=== PATIENT | male | born 1970 | race Caucasian/White ===

== ENCOUNTER 2019-10-31 02:38 | Emergency (ER) | payer BC, SELFPAY ==
--- NOTE | ~2019-10-31 | XR_ITS ---
EXAMINATION: XR wrist RT min 3V INDICATION: Right wrist pain, initial encounter TECHNIQUE: Four views of the right wrist are obtained. COMPARISON: None available FINDINGS: There is an acute, traumatic, closed, triquetral fracture seen on lateral view. Soft tissue swelling surrounds the fracture. No additional acute osseous findings are evident. IMPRESSION: 1. Acute triquetral fracture. Reviewed, dictated and finalized at location A. NIC DISEASE MANAGER
[2019-10-31 02:40] VITALS: BP 218/103; PULSE 90; RESP 16; TEMP 36.3; O2SAT 100
--- NOTE | 2019-10-31 04:42 | ED.UPPEXIN ---
HPI - Extremity Injury (Upper) General Chief Complaint: Extremity Injury, Upper Stated Complaint: right arm injury Time Seen by Provider: 10/31/19 03:26 History of Present Illness HPI narrative: Patient is a 49-year-old male who presents the ER with a right wrist injury. 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 He extended the wrist backwards. Sudden onset pain. Pain worsens with flexion and extension at the wrist. Neurovascular intact distal to the injury. Did not strike head or lose consciousness. Related Data Allergies Allergy/AdvReac Type Severity Reaction Status Date / Time No Known Allergies Allergy Mild Verified 10/31/19 02:55 Review of Systems Review of Systems: All systems reviewed & are unremarkable except as noted in HPI and below Musculoskeletal: Musculoskeletal: Reports arthralgias and Reports joint swelling Neurologic: Denies dizziness, Denies numbness and Denies weakness PMFSH Past Medical History Medical History (Updated 10/31/19 @ 05:14 by Zeb Stephen MD) Gout Hypertension Sleep apnea Surgical History Surgical History (Updated 10/31/19 @ 04:46 by Zeb Stephen MD) H/O knee surgery Social History Social History Smoking status: Never smoker Second hand tobacco smoke exposure: Yes Alcohol intake: current Exam Narrative: Exam Narrative: GENERAL: Well-appearing, well-nourished, and in no acute distress. HEAD: Normocephalic, atraumatic. ENT: Mucous membranes moist. EXTREMITIES: Focused exam of the right upper extremity is positive for swelling and slight bruising over the dorsal aspect of the right wrist with tenderness over the proximal aspect of the hand and wrist joint as opposed to the distal radius and ulna. Pain with making a fist and extending fingers. Brisk capillary refill. Normal ulnar/radial pulses. SKIN: Warm, dry, no rash. NEURO: No focal deficits. Alert and oriented x3. PSYCH: Normal mood and affect. Course Course Emergency Course: Disucussed with Dr. Faye, recommends tertiary care hand surgery as he and Dr. Gill do not work on Lunate fractures. Discussed with Dr. Bal at [facility], recommends f/u with Dr. Welch or Dr. Quinones at [facility]. Clinic number provided. Pt splinted and give copy of images. Vital Signs Vital signs: Vital Signs Temperature 97.3 F L 10/31/19 02:40 Pulse Rate 90 10/31/19 02:40 Respiratory Rate 16 10/31/19 02:40 Blood Pressure 218/103 H 10/31/19 02:40 Pulse Oximetry 100 10/31/19 02:40 Temperature 97.3 F L 10/31/19 02:40 Pulse Rate 90 10/31/19 04:58 Respiratory Rate 12 10/31/19 04:58 Blood Pressure 197/114 H 10/31/19 04:58 Pulse Oximetry 98 10/31/19 04:58 Procedures Orthopedic Splinting/Casting Injury #1: Splinting/Casting Date: 10/31/19 Splinting/Casting Time: 04:48 Side: right Upper Extremity Injury Location: wrist Upper Extremity Immobilizer: wrist splint Splint: customized in ED OCL: other (volar and dorsal splint) Pre-Procedure Neuro Vascular Exam: normal Post-Procedure Neuro Vascular Exam: normal MDM - Extremity Injury (Upper) Imaging Data My impression: Right Wrist: Lunate Fracture Discharge Plan Discharge Clinical Impression: Fracture of lunate bone of right wrist Qualifiers: Encounter type: initial encounter Fracture type: closed Fracture alignment: nondisplaced Qualified Code(s): S62.124A - Nondisplaced fracture of lunate [semilunar], right wrist, initial encounter for closed fracture Patient Disposition: Home, Self-Care Condition: Stable Instructions: Wrist Fracture in Adults (ED) Additional Instructions: You have a fracture of the lunate bone in your right wrist. Is recommended that you follow-up with the hand surgeons at [facility]. You should see either Dr. Welch or Dr. Quinones. Do not re
[2019-10-31 04:58] VITALS: BP 197/114; PULSE 90; RESP 12; O2SAT 98
--- NOTE | 2020-03-26 10:25 | PC.NURSE ---
LATE ENTRY This note is being entered to document information to the patient's record. The following information was omitted on [10/31/19], by [Dr. Stephen].Verbal order for Right arm short volar splint.
== END 2019-10-31 05:35 | disposition home or self-care (01) ==
PROVIDERS: Emergency Provider Emergency Medicine; PCP Family Medicine
DX: S62.111A Displaced fracture of triquetrum [cuneiform] bone, right wrist, initial encounter for closed fracture (principal); I10 Essential (primary) hypertension; G47.30 Sleep apnea, unspecified; M10.9 Gout, unspecified; Y93.81 Activity, refereeing a sports activity; W03.XXXA Other fall on same level due to collision with another person, initial encounter
CPT/HCPCS: 29125; 73110; 99284

== ENCOUNTER 2020-02-17 00:33 | Outpatient (CLI) | payer BC, SELFPAY | END 2020-02-17 00:34 | disposition home or self-care (01) | LOC: ANHCOVIDDT 00:33 | PROVIDERS: PCP Family Medicine; Visit Provider Internal Medicine Gastroenterology | DX: Z01.818 Encounter for other preprocedural examination (principal); Z11.59 Encounter for screening for other viral diseases | CPT/HCPCS: 87635; C9803; U0003 ==

== ENCOUNTER 2020-02-20 00:59 | Day surgery (SDC) | payer BC, SELFPAY ==
[2020-02-14 14:24] VITALS: BMI 41.7
[2020-02-20 07:21] VITALS: BP 157/113; PULSE 113; RESP 16; TEMP 36.7; O2SAT 98
[2020-02-20] MEDS: LACTATED RINGERS 1,000 ML 150 ML IV CONT (07:35)
--- NOTE | 2020-02-20 07:52 | WPDANESEPPF ---
Anes - Initial Pre Proc Eval Procedure: Operation Date: 02/20/20 08:30 Proposed Procedures p Screening Colonoscopy - Andrae Brown MD Date/Time: 02/20/20 07:52 Surgeon: Andrae Brown MD Pre Op Diagnosis: neoplasm screening Patient Data Age: 49 Gender: M Height: 5 ft 10 in Weight: 148 kg Last Vital Signs Temp 36.7 C 02/20/20 07:21 Pulse 113 H 02/20/20 07:21 Resp 16 02/20/20 07:21 BP 157/113 H 02/20/20 07:21 Pulse Ox 98 02/20/20 07:21 Allergies Allergy/AdvReac Type Severity Reaction Status Date / Time No Known Allergies Allergy Mild Verified 02/20/20 07:08 Home Medications Medication Instructions Recorded Confirmed Type meloxicam 7.5 mg tablet 7.5 mg PO DAILY #30 tablet 12/15/19 02/20/20 Rx allopurinol 300 mg tablet 300 mg PO DAILY #30 tablet 01/30/20 02/14/20 Rx lisinopril 5 mg tablet 5 mg PO DAILY #30 tablet 01/30/20 02/14/20 Rx Patient hx anesthesia problems: none Family hx anesthesia problems: none PMFSH Past Medical History Medical History Gout Hypertension Sleep apnea Surgical History Surgical History H/O knee surgery Social History Social History Smoking status: Never smoker Second hand tobacco smoke exposure: Yes Alcohol intake: current Anes - Eval Final PreProcedure Day of Procedure 02/20/20 07:52 Patient weight: morbidly obese Heart: regular rate and rhythm Lungs: clear to auscultation Airway: Mallampati scale class II Neurological: alert and oriented Last oral intake: >/= 8 hours ASA classification: III Emergent: no Anesthetic plan: proceed Anesthesia type and monitoring: general GIVS and standard monitoring Informed Consent: The patient's anesthetic plan and its attendant risks and benefits were discussed with the patient/family/POA. Questions were solicited and answers provided to the satisfaction of the patient/family/POA.
--- NOTE | 2020-02-20 08:45 | PM.HPGS ---
History of Present Illness History of Present Illness Consent: Risks, benefits, and alternatives have been discussed and questions answered. Patient agrees to proceed with procedure. Chief complaint: neoplasm screening Narrative: Kilo Crowe is a 49 year old male here for his first screening colonoscopy Review of Systems Constitutional: Constitutional: Denies headache(s) and Denies weakness Eyes: Eyes: Denies blurry vision ENT: Reports Normal hearing present, Denies headache(s) and Denies neck pain Cardiovascular: Cardiovascular: Denies chest pain and Denies dyspnea Respiratory: Respiratory: Denies dyspnea Gastrointestinal: Gastrointestinal: Reports no additional gastrointestinal complaints Genitourinary: Genitourinary: Denies dysuria Musculoskeletal: Musculoskeletal: Denies neck pain Integumentary/Breasts: Skin/Breast: Denies dry skin Neurologic: Reports Normal hearing present, Denies headache(s) and Denies weakness Psychiatric: Psychiatric: Denies anxiety Endocrine: Endocrine: Denies change in body appearance Hematologic/Lymphatic: Hematologic/Lymphatic: Denies easy bleeding Allergic/Immunologic: Allergic/Immunologic: Denies urticaria PMFSH Past Medical History Medical History Gout Hypertension Sleep apnea Surgical History Surgical History H/O knee surgery Social History Social History Smoking status: Never smoker Second hand tobacco smoke exposure: Yes Alcohol intake: current Meds Home Medications and Allergies Home Medications Medication Instructions Recorded Confirmed Type meloxicam 7.5 mg tablet 7.5 mg PO DAILY #30 tablet 12/15/19 02/20/20 Rx allopurinol 300 mg tablet 300 mg PO DAILY #30 tablet 01/30/20 02/14/20 Rx lisinopril 5 mg tablet 5 mg PO DAILY #30 tablet 01/30/20 02/14/20 Rx Allergies Allergy/AdvReac Type Severity Reaction Status Date / Time No Known Allergies Allergy Mild Verified 02/20/20 07:08 Vital Signs Vital Signs - 24 hr 02/20/20 07:21 Temperature 98.0 F Pulse Rate 113 H Respiratory Rate 16 Blood Pressure 157/113 H Pulse Oximetry 98 Exam Const: General: comfortable and no acute distress HENMT: General nose exam: Normal nares present Eyes: General: appearance normal, both eyes and all related structures Neck: Neck: no JVD Resp: Auscultation: clear to auscultation bilaterally Cardio: Rate: regular rate Rhythm: regular rhythm GI: Inspection: non-distended GI Palp: Yes Soft to palpation Skin: General skin exam: normal color Neuro: General: gait normal Speech: normal speech Extrem: General: normal to inspection Psych: Mental Status: mental status grossly normal Assessment and Plan Assessment and plan (1) Colon cancer screening: Code(s): Z12.11 - Encounter for screening for malignant neoplasm of colon Status: Acute Assessment and Plan: will proceed with colonoscopy (2) Hypertension: Code(s): I10 - Essential (primary) hypertension Status: Acute
[2020-02-20 09:09] VITALS: BP 108/58; PULSE 79; RESP 18; O2SAT 99
[2020-02-20 09:19] VITALS: BP 113/57; PULSE 76; RESP 22; O2SAT 98
[2020-02-20 09:29] VITALS: BP 131/71; PULSE 83; RESP 20; O2SAT 99
== END 2020-02-20 09:48 | disposition home or self-care (01) ==
PROVIDERS: PCP Family Medicine; Visit Provider Internal Medicine Gastroenterology
PROC: 0DJD8ZZ Inspection of Lower Intestinal Tract, Via Natural or Artificial Opening Endoscopic (ICD-10-PCS; CPT 45378; principal; 2020-02-20 08:30)
DX: Z12.11 Encounter for screening for malignant neoplasm of colon (principal); K64.8 Other hemorrhoids; I10 Essential (primary) hypertension; G47.30 Sleep apnea, unspecified; M10.9 Gout, unspecified; E66.01 Morbid (severe) obesity due to excess calories; Z68.42 Body mass index [BMI] 45.0-49.9, adult
CPT/HCPCS: 45378; J7120

== ENCOUNTER 2022-01-16 08:23 | Emergency (ER) | payer BC, SELFPAY ==
[2022-01-16] VITALS (9 sets, daily range): BP systolic 147–219; BP diastolic 85–114; PULSE 87–99; RESP 20; TEMP 36.6; O2SAT 97–99
--- NOTE | ~2022-01-16 | CT_ITS ---
"EXAMINATION: CTA brain carotid DATE: 01/16/2022 10:06 INDICATION: Right hemiparesis. TECHNIQUE: Computed tomographic angiography (CTA) of the head was performed with 100 mL Omnipaque-350 intravenous contrast. CTA of the neck was performed with intravenous contrast. Automated exposure co ntrol and iterative reconstruction technique were employed. The dose-length product was 1299.28 mGy-c m. Maximum intensity projection and volume rendered 3D-reconstructions were created by the [id number] on a separate workstation. COMPARISON: Head CT 01/16/2022 FINDINGS: HEAD CTA: There is no intracranial hemorrhage, acute infarction, or abnormal intracranial mass lesion . The ventricles are normal in size. Left vertebral artery is dominant. There is no significant steno sis of basilar artery or the posterior cerebral arteries. There is no significant stenosis of the int racranial internal carotid arteries or anterior or middle cerebral arteries. Anterior communicating a rtery is normal. Posterior communicating arteries are not identified. There is no aneurysm. NECK CTA: There is a multinodular goiter extending into the superior mediastinum. There are no pathol ogically enlarged lymph nodes. There is no significant stenosis of the vertebral arteries. There is p laque in the proximal internal carotid arteries. There is 0% stenosis of the proximal right internal carotid artery relative to normal distal artery lumen diameter (NASCET criteria). There is 0% stenosi s of the proximal left internal carotid artery relative to normal distal artery lumen diameter. There is mild cervical spondylosis. IMPRESSION: 1. Normal brain. No aneurysm or significant intracranial internal stenosis. 2. 0% stenosis of the proximal internal carotid arteries relative to normal distal artery lumen diame ters (NASCET criteria). Reviewed, dictated and finalized at location A. IMPRESSION: 1. Normal brain. No aneurysm or significant intracranial internal stenosis. 2. 0% stenosis of the proximal internal carotid arteries relative to normal dis nhung artery lumen diameters (NASCET criteria)."
--- NOTE | ~2022-01-16 | CT_ITS ---
EXAMINATION: CT brain wo con EXAM DATE: 01/16/2022 09:02 INDICATION: Right sided weakness . Colon cancer. TECHNIQUE: Spiral CT of the head was performed without contrast. Axial, coronal and sagittal images were reviewed. The dose-length product (DLP) for this examination was 605.33 mGy-cm. The exposure w as tailored according to patient size, and iterative reconstruction (ASIR) was used as additional dos e reduction technique. There is no prior study for comparison. FINDINGS: There is no acute intraparenchymal hemorrhage. No evidence of intraparenchymal brain mass lesion. No evidence of acute infarction. There is no mass effect or midline shift. The ventricles are normal in size. There are no extra-axial collections. There are no acute calvarial fractures. Kimberly mooney has had left-sided ocular lens surgery. Soft tissue is unremarkable. The visualized sinuses and mastoid air cells are well aerated. IMPRESSION: 1. No acute intracranial findings. Reviewed, dictated and finalized at location D.
--- NOTE | 2022-01-16 08:32 | ED.NEUROSD ---
HPI - Neuro Symptoms/Deficit General Chief Complaint: Weakness Stated Complaint: ambulance Time Seen by Provider: 01/16/22 08:32 Source: patient Mode of arrival: ambulatory Limitations: no limitations History of Present Illness HPI Narrative: Patient states that he got up at 5:30 a.m. this morning was fine when he went in to take a shower approximately 7:30 a.m., when he got out of the shower and his leg and arm on right side turned to Jell-O . He sat down and his symptoms quickly resolved. He started to get ready and got dressed and then he had a 2nd episode. He does state that his thought his speech was slurred. He was not have any difficulty finding his words. She called the ambulance, in the ambulance EMS reports he had a 3rd episode his right side was completely flaccid again having some garbled speech but it quickly resolved prior to arrival. Since arrival patient has been completely without symptoms. He denies any history of this in the past. He did say that he quit taking his blood pressure medicine for no apparent reason. Onset (ago): hour(s) (1) Timing confirmed by: spouse Location: speech, right face, right arm and right leg History of same: No Severity: severe Quality: weak Relieving factors: time Exacerbating factors: none Context: sudden onset On Anticoagulants: No Associated symptoms: denies other symptoms Treatments Prior to Arrival: none Related Data Allergies Allergy/AdvReac Type Severity Reaction Status Date / Time No Known Allergies Allergy Mild Verified 01/16/22 13:03 Review of Systems Review of Systems: All systems reviewed & are unremarkable except as noted in HPI and below Constitutional: Constitutional: Denies chills and Denies fever(s) Cardiovascular: Cardiovascular: Denies chest pain Respiratory: Respiratory: Denies cough and Denies dyspnea Gastrointestinal: Gastrointestinal: Denies diarrhea, Denies nausea and Denies vomiting Neurologic: Denies vertigo, Denies dizziness and Denies syncope [facility] Past Medical History Medical History Colon cancer screening Gout Hypertension Morbid obesity Normal colonoscopy (~02/2020) repeat 10 years Sleep apnea Surgical History Surgical History H/O knee surgery Social History Social History Smoking status: Never smoker Second hand tobacco smoke exposure: Yes Alcohol intake: never Alcohol use details: RARE Substance use: never Substance use type: does not use Gender identity (if verbalized by the patient): Male Spiritual care concerns: No Exam Const: General: healthy appearing and no acute distress Nutritional Appearance: well nourished and obese morbidly obese Orientation/consciousness: patient oriented x3 Limitations: altered mental status HENMT: Head: normal to inspection Ears: external ears normal General nose exam: Normal external nose present Face and sinus: normal facial exam Mouth: Yes moist mucous membranes Eyes: Conjunctivae: conjunctivae normal Pupils: Equal, round and reactive pupils present EOM: EOMs intact bilaterally Neck: Neck: normal visual inspection Resp: Effort & Inspection: normal respiratory effort Auscultation: clear to auscultation bilaterally Cardio: Rate: regular rate Rhythm: regular rhythm Bruits: no carotid bruits GI: GI Palp: Yes Soft to palpation and No Tenderness to palpation present (GI) Auscultation: normal bowel sounds Back/Spine/Pelvis: Cervical Spine: cervical ROM normal Thoracic/Lumbar Spine: thoraco-lumbar ROM normal Skin: General skin exam: normal color Rashes: no rashes Neuro: General: patient oriented x3 Cranial nerves: Yes CN's II-XII intact bilaterally, Yes Equal, round and reactive pupils present, Yes Bilaterally intact EOM present, Yes Nystagmus not present, Yes Normal facial strength present, Yes facial
--- NOTE | 2022-01-16 08:33 | ECG_ITS ---
Measurements Intervals [place] Rate: 88 P: 49 PA: 175 QRS: -29 QRSD: 113 T: 47 QT: 354 QTc: 428 Interpretive Statements SINUS RHYTHM WITH OCCASIONAL VENTRICULAR PREMATURE COMPLEXES LEFT AXIS DEVIATION [QRS AXIS < -20] MODERATE INTRAVENTRICULAR CONDUCTION DELAY [110+ ms QRS DURATION] ABNORMAL ECG NO PREVIOUS ECG AVAILABLE FOR COMPARISON Electronically Signed On 01-16-2022 15:34:38 CDT by Jose Ramon Brown M.D.
[2022-01-16] MEDS: hydrALAZINE HCL 20 MG/ML VIAL 10 MG IV PUSH (08:41)
[2022-01-16 08:50] LABS: Basophils Absolute Auto 0.06 K/mm3 (0.00-0.10); Basophils Percent Auto 0.6 % (0.0-1.0); Eosinophils Absolute Auto 0.35 K/mm3 (0.02-0.50); Eosinophils Percent Auto 3.7 % (1.0-6.0); Hemoglobin 15.2 g/dL (14.0-18.0); Immature Granulocyte Absolute 0.07 K/mm3 (0.00-0.00); Immature Granulocyte Percent A 0.7 % (0.0-0.0); Lymphocytes Absolute Auto 2.05 K/mm3 (1.10-4.50); Lymphocytes Percent Auto 21.6 % (18.0-42.0); Mean Corpuscular Volume 81.9 fL (78.0-102.0); Mean Platelet Volume 9.6 fl (8.7-11.0); Monocytes Absolute Auto 0.65 K/mm3 (0.10-0.90); Monocytes Percent Auto 6.9 % (2.0-11.0); Neutrophils Absolute Auto 6.3 K/mm3 (1.7-7.2); Neutrophils Percent Auto 66.5 % (50.0-70.0); Platelet Count Result 275 K/mm3 (150-420); Red Blood Count 5.62 M/mm3 (4.70-6.10); Red Cell Distribution Width 13.5 % (11.6-14.4); White Blood Count 9.5 K/mm3 (4.8-10.8)
[2022-01-16 09:02] LABS: Prothrombin Time 10.5 Seconds (9.50-12.10)
[2022-01-16 09:05] LABS: Alanine Aminotransferase 32 U/L (16-63); Albumin Level 3.6 g/dL (3.4-5.0); Alkaline Phosphatase 129 U/L (46-116); Anion Gap 10 mmol/L (8-16); Aspartate Amino Transferase 15 U/L (15-37); Bilirubin,Total 0.5 mg/dL (0.00-1.00); Blood Urea Nitrogen 12 mg/dL (7-18); Calcium 8.9 mg/dL (8.5-10.1); Carbon Dioxide 26 mmol/L (21-32); Chloride 102 mmol/L (98-108); Estimated Glomerular Filt Rate > 60; Glucose 127 mg/dL (70-99); Osmolality Calculated 287 mOsm/kg (285-295); Potassium 3.9 mmol/L (3.5-5.1); Sodium 138 mmol/L (136-145); Total Protein 7.9 g/dL (6.4-8.2)
[2022-01-16] MEDS: cloNIDine HCL 0.1 MG TABLET 0.2 MG PO (09:20)
[2022-01-16] MEDS: ASPIRIN 81 MG CHEWABLE TABLET 324 MG PO (09:22)
[2022-01-16 10:07] LABS: Magnesium 1.9 mg/dL (1.8-2.4); Thyroid Stimulating Hormone 1.85 uIU/mL (0.36-3.74)
--- NOTE | 2022-01-16 11:21 | PC.NURSE ---
PT LOADED TO EMS COT, REMAINS ALERT AND ORIENTED, NO DEFICITS NOTED.
== END 2022-01-16 11:20 | disposition short-term general hospital (02) ==
PROVIDERS: Emergency Provider Emergency Medicine; PCP Family Medicine
DX: G45.9 Transient cerebral ischemic attack, unspecified (principal); I16.0 Hypertensive urgency
CPT/HCPCS: 36415; 70450; 70496; 70498; 80053; 83735; 84443; 85025; 85610; 93005; 96374; 99285; A9270; J0360; Q9967

== ENCOUNTER 2022-01-16 13:29 | Inpatient (IN) | payer BC, SELFPAY ==
[2022-01-16] VITALS (10 sets, daily range): BP systolic 135–179; BP diastolic 73–107; PULSE 81–97; RESP 18–20; TEMP 36–37.1; O2SAT 98–99; BMI 43.2
--- NOTE | 2022-01-16 | ECHO_ITS ---
Patient Info Name: Kilo Crowe Age: 51 years : 1970 Gender: Male Ht: 71 in Wt: 310 lbs BSA: 2.72 m2 HR: 78 bpm BP: 145 / 73 mmHg Technical Quality: Fair Exam Date: 01/16/2022 3:49 PM Exam Location: [facility] Pulmonary Exam Room: 259 Patient Status: Inpatient Admit Date: 01/16/2022 Staff Ordering Physician: Yifan Cuevas [employer] Fitter: Teena Escudero RDCS Attending Provider: Maddy Kinney MD Referring Physician: Mason JUAN; Exam Type: CA echo doppler w bubble study Study Info Indications - TIA Complete two-dimensional, color flow and Doppler transthoracic echocardiogram is performed with agitated saline. Contrast/Agitated Saline Contrast/Ag. Saline: Agitated Saline Amount: 20.00 ml Existing IV Access: Yes Summary 1. Left ventricular chamber dimension is normal. 2. Left ventricular systolic function is normal, estimated at 60-65%. 3. There is mildly increased left ventricular wall thickness. 4. The left ventricular diastolic function is grade II diastolic dysfunction. 5. E/e' 10 is mildly elevated. 6. No pulmonary hypertension, estimated pulmonary arterial systolic pressure is 28 mmHg. Left Ventricle E/e' 10 is mildly elevated. Left ventricular chamber dimension is normal. Left ventricular systolic function is normal, estimated at 60-65%. There is mildly increased left ventricular wall thickness. The left ventricular diastolic function is grade II diastolic dysfunction. Right Ventricle Right ventricular chamber dimension is normal. Right ventricular systolic function is normal. Left Atria Left atrial chamber dimension is normal. Right Atria Right atrial chamber dimension is normal. Atrial Septum Agitated saline injection with and without valsalva maneuver opacified right side cardiac chambers without obvious shunt to left cardiac chambers. Intact interatrial septum visualized by 2D and agitated saline imaging. Aortic Valve The aortic valve is probable trileaflet. There is no aortic valve stenosis. There is no aortic valve regurgitation. Pulmonic Valve There is no pulmonic regurgitation. Mitral Valve There is no mitral valve stenosis. There is no mitral valve regurgitation. Tricuspid Valve There is no tricuspid valve regurgitation. No pulmonary hypertension, estimated pulmonary arterial systolic pressure is 28 mmHg. Pericardium/Pleural There is no pericardial effusion. Inferior Vena Cava Normal inferior vena cava with >50% collapse upon inspiration consistent with normal right atrial pressure, 5 mmHg. Aorta The aortic root size at the sinus of Valsalva is normal. Left Ventricular Outflow Tract Name Value Normal LVOT 2D LVOT Diameter 2.1 cm LVOT Doppler LVOT Peak Gradient 6 mmHg LVOT Mean Gradient 4 mmHg LVOT VTI 25 cm LVOT VTI/AV VTI Ratio 1.0 LVOT Stroke Volume 89 ml LVOT CO 19.6 l/min
--- NOTE | ~2022-01-16 | MR_ITS ---
EXAMINATION: MR brain/brain stem wo con DATE: 01/16/2022 14:47 INDICATION: Right hemiparesis. Transient ischemic attack. TECHNIQUE: Magnetic resonance imaging (MRI) of the brain and brainstem was performed without intraven ous contrast. Sequences included sagittal and axial T1-weighted FSE, axial diffusion-weighted FS EPI, axial T2*-weighted GRE, axial T2-weighted FLAIR Propeller, and axial T2-weighted Propeller. Apparent diffusion coefficient (ADC) maps were created. COMPARISON: Head CT 01/16/2022 FINDINGS: There is no intracranial hemorrhage, acute infarction, or abnormal intracranial mass lesion . The ventricles are normal in size. There are likely changes of left ocular lens replacement surgery . There is mild mucosal thickening in the ethmoid sinuses. The mastoid air cells are normal. IMPRESSION: 1. Normal brain. Reviewed, dictated and finalized at location A. IMPRESSION: 1. Normal brain.
--- NOTE | 2022-01-16 12:43 | PM.IMHP ---
H&P: HPI History of Present Illness Date/Time: 01/16/22 12:43 Chief Complaint: right-sided weakness Narrative: patient is a 51-year-old male with a past medical history of hypertension, obesity and gout who presented to the ED at [facility] with complaints right-sided weakness. Patient stated that he was feeling okay this morning when he got up at 5:30 a.m. he went to take a shower proximally 7:30 a.m. and when he got out of the shower his legs turned into Jell-O and he fell. His symptoms resolved in roughly 30 minutes. As he was getting dressed and ready to leave town to go to [place] when he got weak on his right side again. He called his and she noticed that his speech had become very slurred and EMS was contacted patient was taken to the ED at [facility]. Right before getting to the ED patient the 3rd episode where his right side was completely flaccid. He was noted the patient's blood pressure on arrival at the ED was 219/108. It is noted that patient has obtained his blood pressure medicines however reasoning was not mentioned. NIH score according to [facility] was 0. Patient also stated that he does get up roughly 10 x a night to urinate. He cannot deny dizziness as he stated that he was unaware of what was going on when he fell. He did state that he had stopped his blood pressure medications roughly a year ago, as he felt his blood pressure had went down. Current NIH was 0. He was sitting in the chair when I went into interview him. He stated that he has been walking around since he has been at the ED. He denies further symptoms. BP has gotten better and is currently 147/85. He did state that he only used to take lisinopril 10mg PO daily prior to these events. Neurology has been consulted. He denies chest pain, shortness of breath, nausea, vomiting, diarrhea, constipation, weakness, fatigue, visual changes, headache, numbness and tingling, urinary issues. Review of Systems Review of Systems: All systems reviewed & are unremarkable except as noted in HPI and below PMFSH Past Medical History Medical History Colon cancer screening Gout Hypertension Morbid obesity Normal colonoscopy (~02/2020) repeat 10 years Sleep apnea Surgical History Surgical History H/O knee surgery Social History Social History Smoking status: Never smoker Second hand tobacco smoke exposure: Yes Alcohol intake: never Alcohol use details: RARE Substance use: never Substance use type: does not use Gender identity (if verbalized by the patient): Male Spiritual care concerns: No Meds Home Medications and Allergies Home Medications Medication Instructions Recorded Confirmed Type lisinopril 10 mg tablet 10 mg PO DAILY #90 tablet 06/11/20 01/16/22 Rx allopurinol 300 mg tablet 300 mg PO DAILY #90 tablet 12/02/21 01/16/22 Rx meloxicam 7.5 mg tablet 7.5 mg PO DAILY #90 tablet 12/02/21 01/16/22 Rx Allergies Allergy/AdvReac Type Severity Reaction Status Date / Time No Known Allergies Allergy Mild Verified 01/16/22 13:03 Exam Const: General: cooperative, healthy appearing, no acute distress, well developed, alert and awake Nutritional Appearance: well nourished Orientation/consciousness: patient oriented x3 Limitations: no limitations HENMT: Head: normal to inspection Ears: hearing grossly normal bilaterally General nose exam: Normal external nose present Mouth: Yes Normal oral and palatal mucosa present, Yes lip normal and Yes tongue normal Teeth and gingiva: abnormal tooth and associated gingiva and poor dentition Eyes: General: appearance normal, both eyes and all related structures Neck: Neck: normal visual inspection, full ROM, trachea midline and supple Chest: Chest palpation & inspection: normal inspection of the chest Resp: Effort & I
--- NOTE | 2022-01-16 13:14 | ADMGEN ---
This patient, Kilo Crowe, was admitted to 2 Medical Room 259-. Patient/family oriented to hospital policies and general routines including ID bracelet, bed and alarms, visiting hours, pain management, procedures, bathroom and other care routines, personal items, smoking policy, room service/diet, and visiting hours. Information on how to activate the Rapid Response Team has been discussed. Patient/Family are encouraged to report perceived risks to care and to ask questions if they do not understand what they are told or what they should do.
--- NOTE | 2022-01-16 13:22 | WPDNEURCNPN ---
Assessment and Plan Additional Plan Possibility of TIA versus subcortical stroke will need the MRI of the brain and echocardiogram as well in the meantime will be continued on aspirin 81 mg daily Consult date: 01/16/22 HPI: Kilo Crowe is a 51 year old male admitted to the hospital through the emergency room where he was brought by the ambulance from home, as per the information available he woke up at 5:30 a.m. to take a shower approximately 7:30 a.m. cut out of the shower ,his right-side turn into gel, he sat down but the symptoms quickly resolved ,he dressed up then had another episode ,his thought his speech was somewhat slurred, he was having difficulties in finding the right words, called the ambulance, he had an another episode as noted by the EMS when he became completely flaccid ,his speech became garbled at the time,by the he came to the ER symptomatology was resolved. he is not allergic to any medication. he has ongoing history of hypertension, morbid obesity, sleep apnea and gout. he has undergone knee surgery, is never a smoker, current alcohol intake, no substance abuse, medications included lisinopril 10 mg daily ,allopurinol 300 mg daily, initial CTA of the brain and neck revealed no evidence of aneurysm or territorial vascular blockage Review of Systems Review of Systems: All systems reviewed & are unremarkable except as noted in HPI and below PMFSH Past Medical History Medical History Colon cancer screening Gout Hypertension Morbid obesity Normal colonoscopy (~02/2020) repeat 10 years Sleep apnea Surgical History Surgical History H/O knee surgery Social History Social History Smoking status: Never smoker Second hand tobacco smoke exposure: Yes Alcohol intake: never Alcohol use details: RARE Substance use: never Substance use type: does not use Gender identity (if verbalized by the patient): Male Spiritual care concerns: No Meds Home Medications and Allergies Home Medications Medication Instructions Recorded Confirmed Type lisinopril 10 mg tablet 10 mg PO DAILY #90 tablet 06/11/20 01/16/22 Rx allopurinol 300 mg tablet 300 mg PO DAILY #90 tablet 12/02/21 01/16/22 Rx meloxicam 7.5 mg tablet 7.5 mg PO DAILY #90 tablet 12/02/21 01/16/22 Rx Allergies Allergy/AdvReac Type Severity Reaction Status Date / Time No Known Allergies Allergy Mild Verified 01/16/22 13:03 Exam Narrative: awake alert cooperative in no obvious acute distress head normocephalic with no cranial bruit ear nose throat examination normal neck is supple with no cervical bruit no thyromegaly no lymphadenopathy heart regular with no murmur lungs clear to auscultation with no rhonchi or crepitations abdomen is soft no organomegaly neurologically awake alert oriented x3 his speech nor dysphasic not dysarthric not dysphonic pupils round regular feels the vision full extraocular movements full with no nystagmus facial sensation intact face mildly asymmetrical tongue in the midline with no fasciculation protrusion midline uvula midline motor examination reveals normal strength and tone in upper and lower extremities reflexes are symmetrical 1 to2+ in the biceps triceps knees and ankle plantars are downgoing there is no evidence of gross sensory or cerebellar deficit on [id number] heel to knee to kuo. [facility] Consult Billing Inpatient Consult [id number] Consult Moderate
[2022-01-16] MEDS: LORazepam INJ (*CRX) 2 MG/ML VIAL 1 MG IV PUSH (14:16)
[2022-01-16 14:17] LABS: Cholesterol 221 mg/dL (0-200); HDL Direct 39 mg/dL; Magnesium 2.1 mg/dL (1.6-2.3); Triglycerides 116 mg/dL (<150)
[2022-01-16 14:28] LABS: LDL Cholesterol Direct 143 mg/dL
[2022-01-16] MEDS: ENOXAPARIN 40 MG/0.4 ML SYRINGE SUB-Q (15:13)
[2022-01-17] VITALS: PULSE 86
[2022-01-17 03:45] VITALS: BP 174/79; PULSE 88; RESP 20; TEMP 35.8; O2SAT 99
[2022-01-17 04:00] VITALS: PULSE 87
[2022-01-17 05:52] LABS: Basophils Absolute Auto 0.1 K/mm3 (0.0-0.1); Basophils Percent Auto 0.6 % (0.2-1.2); Eosinophils Absolute Auto 0.3 K/mm3 (0-0.3); Eosinophils Percent Auto 3.5 % (0-4.4); Hematocrit 42.4 % (42.0-52.0); Hemoglobin 14.1 g/dL (14.0-18.0); Immature Granulocyte Absolute 0.07 K/mm3 (0.00-0.031); Immature Granulocyte Percent A 0.7 % (0-0.5); Lymphocytes Absolute Auto 2.31 K/mm3 (0.9-3.2); Lymphocytes Percent Auto 24.4 % (18.3-44.2); Mean Corpuscular HGB Conc 33.3 g/dl (32-36); Mean Corpuscular Hemoglobin 27.2 pg (26-34); Mean Corpuscular Volume 81.7 fl (80-100); Mean Platelet Volume 9.6 fl (7.4-10.4); Monocytes Absolute Auto 0.7 K/mm3 (0.1-0.6); Monocytes Percent Auto 7.2 % (2.6-8.5); Neutrophils Percent Auto 63.6 % (45.5-73.1); Platelet Count Result 253 k/mm3 (150-375); Red Blood Count 5.19 M/mm3 (4.6-6.20); Red Cell Distribution Width 13.8 % (11.5-14.5); White Blood Count 9.5 K/mm3 (4.5-10.0)
--- NOTE | 2022-01-17 07:18 | PM.IMPN ---
Progress Note: A&P Assessment and Plan (1) Brain TIA: Code(s): G45.9 - Transient cerebral ischemic attack, unspecified Status: Inactive Assessment and Plan: Head CT showed no intracranial abnormality CT of the head and neck showed no occlusion of the carotid arteries MRI of the brain has been ordered echo has been ordered lipid panel has been ordered start aspirin 81 mg p.o. daily consider adding a statin orthostatic blood pressures probably secondary to uncontrolled hypertension neurology consult thank you for your recommendations 01/17/22: - Total Cholesterol is 221. Starting Atorvastatin 20 mg po daily. - Continue ASA 81 mg po daily. - MRI of brain is normal. - Pt. is not Orthostatic. - ECHO shows EF at 60-65%, and grade 2 diastolic dysfunction, with normal LVSF, and there is no aortic stenosis. (2) Gout: Qualifiers: Gout site: toe Gout etiology: unspecified cause Chronicity: chronic Laterality: unspecified laterality Presence of tophus: without tophus Qualified Code(s): M1A.9XX0 - Chronic gout, unspecified, without tophus (tophi) Code(s): M10.9 - Gout, unspecified Status: Acute Assessment and Plan: continue home allopurinol (3) Hypertension: Qualifiers: Hypertension type: essential hypertension Qualified Code(s): I10 - Essential (primary) hypertension Code(s): I10 - Essential (primary) hypertension Status: Acute Assessment and Plan: blood pressure is stone was 210/108 patient was given 10 mg of hydralazine in the ED restart patient's lisinopril current blood pressure is 147/85 trend blood pressure adjust therapy as indicated 01/17/22: - BP's now trending 130s-140s/70s-80s. - Start Norvasc 5 mg po daily for tighter control. Pt. does not need any further permissive HTN since he has had negative workup. Time Spent With Patient Time with patient: 15 - 25 minutes Subjective Date/time seen: 01/17/22 07:18 This pt. was examined at the bedside in interval assessment after he has been admitted to rule out CVA/TIA and/or other effects secondary to his marked elevated BP. He is currently being treated with Lisinopril 10 mg Daily, and is anticoagulated with Lovenox 40 mg SC. His MRI of his brain was negative for any acute findings, and his CTA of head and neck as well as CT of head was negative. The pt's BP has been improved, however, he will likely need tighter control at discharge. In addition, his Cholesterol shows that he has a total cholesterol of 221. He will benefit from a statin at discharge as well as continued ASA. Will await Neurology recommendation on whether or not to add Plavix. Pt. is asymptomatic today without any complaints of Headache, dizziness, lightheadedness or any further neurological complaints that are focal. Review of Systems Review of Systems: All systems reviewed & are unremarkable except as noted in HPI and below Objective Data Vital Signs Vital Signs: Vital Signs - 24 hr 01/16/22 13:50 01/16/22 16:00 01/16/22 18:05 Temperature 98.7 F Pulse Rate 94 91 85 Respiratory Rate 20 Blood Pressure 145/73 H 146/80 H Pulse Oximetry 99 01/16/22 18:07 01/16/22 18:09 01/16/22 19:35 Temperature 97.8 F Pulse Rate 97 96 86 Respiratory Rate 18 Blood Pressure 178/100 H 179/107 H 177/81 H Pulse Oximetry 98 01/16/22 20:00 01/16/22 20:27 01/16/22 20:28 Temperature 97.8 F Pulse Rate 81 Respiratory Rate 18 Blood Pressure 177/81 H 146/96 H 146/80 H Pulse Oximetry 98 01/16/22 23:24 01/17/22 00:00 01/17/22 03:45 Temperature 96.8 F L 96.4 F L Pulse Rate 86 86 88 Respiratory Rate 20 20 Blood Pressure 135/78 174/79 H Pulse Oximetry 99 99 01/17/22 04:00 Temperature Pulse Rate 87 Respiratory Rate Blood Pressure Pulse Oximetry Intake/Output Intake/Output: Intake & Output 01/14/22 01/15/22 01/16/22
[2022-01-17 08:00] VITALS: PULSE 82
[2022-01-17] MEDS: lisinopriL 10 MG TABLET PO (08:29)
[2022-01-17 08:30] VITALS: BP 162/80; PULSE 93
[2022-01-17] MEDS: ASPIRIN 81 MG ENTERIC TABLET PO (08:30)
[2022-01-17] MEDS: ENOXAPARIN 40 MG/0.4 ML SYRINGE SUB-Q (08:30)
[2022-01-17] MEDS: amLODIPine BESYLATE 5 MG TABLET PO (08:30)
[2022-01-17] MEDS: ATORVASTATIN 20 MG TABLET PO (08:30)
[2022-01-17] MEDS: allopurinoL 300 MG TABLET PO (08:30)
[2022-01-17] MEDS: MELOXICAM 7.5 MG TABLET PO (08:31)
[2022-01-17 09:05] LABS: Alanine Aminotransferase 25 U/L (4-50); Alkaline Phosphatase 118 U/L (38-126); Anion Gap 8 mmol/L (8-16); Aspartate Amino Transferase 25 U/L (17-59); Bilirubin,Total 0.7 mg/dL (0.2-1.3); Blood Urea Nitrogen 14 mg/dL (9-20); Calcium 8.8 mg/dL (8.4-10.2); Carbon Dioxide 27 mmol/L (22-30); Chloride 101 mmol/L (98-107); Estimated CRCL calculation 133 ml/min; Estimated Glomerular Filt Rate > 60; Glucose 193 mg/dL (65-110); Potassium 3.9 mmol/L (3.4-5.0); Sodium 136 mmol/L (137-145)
--- NOTE | 2022-01-17 10:02 | PM.DS ---
DS: Admitting Diagnosis Discharge Date January 17, 2022 Admitting Diagnosis 1. Brain TIA 2. Gout 3. Hypertension DS: Discharge Diagnosis Discharge Diagnosis (1) Brain TIA: Code(s): G45.9 - Transient cerebral ischemic attack, unspecified Status: Inactive Assessment and Plan: Head CT showed no intracranial abnormality CT of the head and neck showed no occlusion of the carotid arteries MRI of the brain has been ordered echo has been ordered lipid panel has been ordered start aspirin 81 mg p.o. daily consider adding a statin orthostatic blood pressures probably secondary to uncontrolled hypertension neurology consult thank you for your recommendations 01/17/22: - Total Cholesterol is 221. Starting Atorvastatin 20 mg po daily. - Continue ASA 81 mg po daily. - MRI of brain is normal. - Pt. is not Orthostatic. - ECHO shows EF at 60-65%, and grade 2 diastolic dysfunction, with normal LVSF, and there is no aortic stenosis. -I have spoken with Dr. Olivarez and he gives the OK to discharge the patient at this time. He would like him to continue Plavix and ASA as well as the statin for the next 3 weeks and follow up with him in his office in 3 months. - Lifestyle changes were discussed with the patient to help prevent repeat TIA. (2) Gout: Qualifiers: Gout site: toe Gout etiology: unspecified cause Chronicity: chronic Laterality: unspecified laterality Presence of tophus: without tophus Qualified Code(s): M1A.9XX0 - Chronic gout, unspecified, without tophus (tophi) Code(s): M10.9 - Gout, unspecified Status: Acute Assessment and Plan: continue home allopurinol (3) Hypertension: Qualifiers: Hypertension type: essential hypertension Qualified Code(s): I10 - Essential (primary) hypertension Code(s): I10 - Essential (primary) hypertension Status: Acute Assessment and Plan: blood pressure is stone was 210/108 patient was given 10 mg of hydralazine in the ED restart patient's lisinopril current blood pressure is 147/85 trend blood pressure adjust therapy as indicated 01/17/22: - BP's now trending 130s-140s/70s-80s. - Start Norvasc 5 mg po daily for tighter control. Pt. does not need any further permissive HTN since he has had negative workup. - Lifestyle changes were discussed with the patient at this time to decrease his risk of further Neurological or Cardiology disease. DS: Summary Hospital Course Reason for hospitalization: TIA Hospital Course: This 51-year-old male patient with significant past medical history of hypertension, obesity, presented to the emergency room on January 16, 2022 as a transfer from [place]. His original presenting symptoms there was right-sided weakness that he endorsed started approximately 5:30 a.m. when he got out of the shower in his legs turn to [facility] and he fell. For approximately 1/2 hour he was unable to move his legs, with right side being weaker. Blood pressure on arrival to the emergency room was 219/108. Symptoms resolved prior to arriving to the ER and upon arrival his NIH score was 0. The patient was subsequently sent to [facility] for neurological evaluation. Here he underwent CT of the head that was negative, CT of the head and neck that were negative, MRI of the brain that was negative and an echocardiogram that showed normal systolic ventricular function with an EF of 60-65% and a grade 2 diastolic dysfunction. No appreciable aortic stenosis was present. Lipid panel was performed that showed an elevated total cholesterol of 221. Patient was started on a statin this morning as well as he has been started on Plavix. I spoke with neurology today as patient's symptoms are completely resolved and we have all objective data results present and he advises to maintain dual aspirin and Plavix therapy for 3 weeks, continue statin and lifestyle changes. He wo
== END 2022-01-17 12:44 | disposition home or self-care (01) | DRG 69 ==
PROVIDERS: Nurse Practitioner; Admitting Provider Internal Medicine; PCP Family Medicine; Visit Provider Nurse Practitioner Adult Health
DX: G45.9 Transient cerebral ischemic attack, unspecified (principal); Z68.41 Body mass index [BMI] 40.0-44.9, adult; M1A.9XX1 Chronic gout, unspecified, with tophus (tophi); I10 Essential (primary) hypertension; E66.01 Morbid (severe) obesity due to excess calories; G47.30 Sleep apnea, unspecified; Z79.899 Other long term (current) drug therapy
CPT/HCPCS: 36415; 70551; 80053; 80061; 83735; 85025; 93306; 96375; A9270; J1650; J2060

== ENCOUNTER 2022-04-20 02:00 | Day surgery (SDC) | payer BC, SELFPAY ==
[2022-04-14 14:06] VITALS: BMI 46.0
[2022-04-20 09:27] VITALS: BP 170/97; PULSE 83; RESP 22; TEMP 36.4; O2SAT 100
[2022-04-20] MEDS: LACTATED RINGERS 1,000 ML 150 ML IV CONT (09:44)
--- NOTE | 2022-04-20 09:57 | P.PNAN_ITS ---
Anes - Initial Pre Proc Eval Procedure: Operation Date: 04/20/22 10:30 Proposed Procedures p Esophagogastroduodenoscopy - Andrae Brown MD Date/Time: 04/20/22 09:57 Surgeon: Andrae Brown MD Pre Op Diagnosis: dysphagia Patient Data Age: 51 Gender: M Height: 1.78 m Weight: 147.1 kg Last Vital Signs Temp 97.6 F 04/20/22 09:27 Pulse 83 04/20/22 09:27 Resp 22 H 04/20/22 09:27 BP 170/97 H 04/20/22 09:27 Pulse Ox 100 04/20/22 09:27 O2 Del Method Room Air 04/20/22 09:27 Allergies Allergy/AdvReac Type Severity Reaction Status Date / Time No Known Allergies Allergy Mild Verified 04/20/22 09:26 Home Medications Medication Instructions Recorded Confirmed Type allopurinol 300 mg tablet 300 mg PO DAILY #90 tabs 01/19/22 04/14/22 Rx lisinopril 10 mg tablet 10 mg PO DAILY #90 tabs 01/19/22 04/14/22 Rx amlodipine 5 mg tablet (Norvasc) 5 mg PO QAM #90 tabs 02/16/22 04/14/22 Rx atorvastatin 20 mg tablet 20 mg PO DAILY #90 tabs 02/16/22 04/14/22 Rx aspirin 81 mg tablet,delayed See Rx Instructions .Route 03/17/22 04/14/22 Rx release .COMPLEX #30 tabs meloxicam 7.5 mg tablet 7.5 tablet PO DAILY 04/14/22 04/14/22 History Patient hx anesthesia problems: none Family hx anesthesia problems: none Results Review: All pre-operative results and documents have been reviewed as part of the pre- operative evaluation. [facility] Past Medical History Medical History Colon cancer screening Gout History of TIA (transient ischemic attack) Hypertension Morbid obesity Normal colonoscopy (~02/2020) repeat 10 years Obesity Sleep apnea Surgical History Surgical History H/O knee surgery Social History Social History Smoking status: Never smoker Second hand tobacco smoke exposure: Yes Alcohol intake: never Alcohol use details: RARE Substance use: never Substance use type: does not use Living arrangements: with family Gender identity (if verbalized by the patient): Male Spiritual care concerns: No Anes - Eval Final PreProcedure Day of Procedure 04/20/22 09:57 Patient weight: morbidly obese Airway: Mallampati scale class III ASA classification: III Anesthesia type and monitoring: general GIVS and standard monitoring Results Review: All pre-operative results and documents have been reviewed as part of the pre- operative evaluation. Informed Consent: The patient's anesthetic plan and its attendant risks and benefits were discussed with the patient/family/POA. Questions were solicited and answers provided to the satisfaction of the patient/family/POA.
--- NOTE | 2022-04-20 10:05 | WPDHPUPDATE1 ---
History and Physical Update Update Date/Time: 04/20/22 10:05 History and Physical has been reviewed, including an updated exam of the patient. There are NO changes in the patient's condition. Risks, benefits, and alternatives have been discussed and questions answered. Patient agrees to proceed with procedure.
[2022-04-20 10:27] VITALS: BP 140/90; PULSE 78; RESP 22; O2SAT 100
[2022-04-20 10:37] VITALS: BP 168/99; PULSE 82; RESP 24; O2SAT 100
[2022-04-20 10:47] VITALS: BP 178/107; PULSE 80; RESP 20; O2SAT 100
--- NOTE | 2022-04-20 10:48 | SUR.PHASEII ---
Reported to Dr. Winston pt bp was 178/107, pt stated he hadn't taken his bp meds yet today. Dr. Winston stated he is okay with pt going home just to take bp meds once he arrives at home.
== END 2022-04-20 10:55 | disposition home or self-care (01) ==
PROVIDERS: PCP Family Medicine; Visit Provider Internal Medicine Gastroenterology
PROC: 0DJ08ZZ Inspection of Upper Intestinal Tract, Via Natural or Artificial Opening Endoscopic (ICD-10-PCS; CPT 43235; principal; 2022-04-20 10:30)
DX: R13.10 Dysphagia, unspecified (principal); K21.00 Gastro-esophageal reflux disease with esophagitis, without bleeding; K44.9 Diaphragmatic hernia without obstruction or gangrene; K22.2 Esophageal obstruction; Z86.73 Personal history of transient ischemic attack (TIA), and cerebral infarction without residual deficits; G47.30 Sleep apnea, unspecified; M10.9 Gout, unspecified; I10 Essential (primary) hypertension; Z79.82 Long term (current) use of aspirin; E66.9 Obesity, unspecified; Z68.42 Body mass index [BMI] 45.0-49.9, adult
CPT/HCPCS: 43239; 43249; 88305; 88312; C1726; J2704; J7120

== ENCOUNTER 2022-05-26 19:57 | Outpatient (CLI) | payer BC, SELFPAY ==
--- NOTE | 2022-06-03 12:33 | WPDSLEEPSTUD ---
Sleep Study Date of Study: 05/26/22 Ordering Provider: Benson Child APRN Interpreting Physician: Kaye Allen MD Sleep Study Type: Polysomnogram Height: 1.78 m Weight: 145.15 kg Body Mass Index: 45.9 Neck Circumference (inches): 19 [place]: 22 Reason for Sleep Study Hypersomnolence Sleep History Kilo Crowe is a 51-year-old man with excessive daytime sleepiness. He was diagnosed with sleep apnea 20+ years ago. He tried CPAP for about 1 week but couldn't tolerate it due to septum deviation. He had sinus surgeries to correct this, septoplasty and UPPP but patient reports he was still left with some degree of septum deviation that persists today. He reports daily sinus congestion and drainage but feels it not severe; does not take nasal sprays nor OTC antihistamines. He finds it hard to breathe through his nose. He also has swallowing difficulties. He reports he had severe sleep apnea when initially diagnosed. He wakes up frequently throughout the night. He is always tired the next day and he is never refreshed. He constantly awakens from sleep feeling short of breath. He frequently awakens at night with heartburn, belching or coughing. He constantly snores loudly enough that others complain about it. He frequently has trouble sleeping with a cold. He rarely wakes up gasping for breath at night. He frequently has breathing problems at night observed by others. He does not sweat excessively at night. He does not notice his heart pounding or beating irregularly at night. He frequently falls asleep during the day frequently falls asleep involuntarily and occasionally falls asleep while driving. He does not have loss of muscle tone with strong emotion. He occasionally has daytime difficulties due to excessive sleepiness. He does not feel paralyzed on waking or falling asleep. He rarely has vivid dreamlike scenes upon awakening or falling asleep. He does not feel afraid to go to sleep. He does not have nightmares. He rarely remembers his dreams. He does not have racing thoughts. He does not feel sad or depressed. The frequently has anxiety. He rarely has muscular tension. He occasionally notices parts of his body jerking. He occasionally kicks at night. He occasionally has crawling and aching feelings in his legs. He occasionally has leg pain during the night. He rarely has morning jaw pain. He does not grind his teeth during sleep. He is not bothered by pain during the day. He frequently is awakened by pain at night. He constantly wakes up feeling stiff in the morning with sore achy muscles. He occasionally wakes up with pain in the neck and spine. He has fatigue. Normal bedtime is 9:00 p.m. falling asleep within 10 minutes. He wakes up about 5 times sometimes more often. Goes to the bathroom maybe watches TV. He wakes the morning by 5:30 a.m.. On weekends he goes to bed later, 11:00 p.m. and wakes up by 7:00 a.m.. He estimates getting between 6 and 8 hours of sleep at night. He takes naps in the afternoon or evening. A short nap may be refreshing. He is drowsy after waking for 3 hours. He feels better in the evening compared other times a day. Habits: Never smoked tobacco. He drinks caffeine, ice tea 5 cups a day. No alcohol or recreational drugs. [facility] Past Medical History Medical History (Updated 06/03/22 @ 12:48 by Kaye Allen MD) Colon cancer screening Gout History of TIA (transient ischemic attack) Hypertension Morbid obesity Normal colonoscopy (~02/2020) repeat 10 years Obesity Obstructive sleep apnea Sleep apnea Surgical History Surgical History H/O knee surgery History of uvulopalatopharyngoplasty Social History Social History Smoking status: Never smoker Second hand tobacco smoke exposure: Yes Alcohol intake: never Alcohol use details: RARE Substance use: never
[2022-06-03 12:52] VITALS: BMI 45.9
== END 2022-05-27 05:00 | disposition home or self-care (01) ==
LOC: CHSCSM 19:59
PROVIDERS: PCP Family Medicine; Visit Provider Nurse Practitioner Family
DX: G47.33 Obstructive sleep apnea (adult) (pediatric) (principal); G47.8 Other sleep disorders; G47.10 Hypersomnia, unspecified; I10 Essential (primary) hypertension; R13.10 Dysphagia, unspecified; E66.9 Obesity, unspecified; Z86.73 Personal history of transient ischemic attack (TIA), and cerebral infarction without residual deficits
CPT/HCPCS: 95810

== ENCOUNTER 2022-08-25 01:12 | Day surgery (SDC) | payer BC, SELFPAY ==
[2022-08-13 09:43] VITALS: BMI 44.6
[2022-08-25 07:19] VITALS: BP 157/97; PULSE 78; RESP 20; TEMP 36.5; O2SAT 98; BMI 46.1
[2022-08-25] MEDS: LACTATED RINGERS 1,000 ML 150 ML IV CONT (07:27)
--- NOTE | 2022-08-25 08:10 | WPDANESEPPF ---
Anes - Initial Pre Proc Eval Procedure: Operation Date: 08/25/22 08:30 Proposed Procedures p Esophagogastroduodenoscopy - Andrae Brown MD Date/Time: 08/25/22 08:10 Surgeon: Andrae Brown MD Pre Op Diagnosis: esophageal stricture Patient Data Age: 52 Gender: M Height: 1.8 m Weight: 150.2 kg Last Vital Signs Temp 97.7 F 08/25/22 07:19 Pulse 78 08/25/22 07:19 Resp 20 08/25/22 07:19 BP 157/97 H 08/25/22 07:19 Pulse Ox 98 08/25/22 07:19 O2 Del Method Room Air 08/25/22 07:19 Allergies Allergy/AdvReac Type Severity Reaction Status Date / Time No Known Allergies Allergy Mild Verified 08/25/22 07:18 Home Medications Medication Instructions Recorded Confirmed Type allopurinol 300 mg tablet 300 mg PO DAILY #90 tabs 01/19/22 08/13/22 Rx amlodipine 5 mg tablet (Norvasc) 5 mg PO QAM #90 tabs 02/16/22 08/13/22 Rx aspirin 81 mg tablet,delayed See Rx Instructions .Route 03/17/22 08/13/22 Rx release .COMPLEX #30 tabs lisinopril 10 mg tablet 10 mg PO DAILY #90 tabs 04/30/22 08/13/22 Rx atorvastatin 20 mg tablet 20 mg PO DAILY #90 tabs 06/25/22 08/13/22 Rx azelastine 137 mcg (0.1 %) nasal 1 spray intranasal Q12H #30 mL 07/01/22 08/13/22 Rx spray aerosol cetirizine 10 mg capsule (Zyrtec) 10 mg PO .hs PRN allergy symptoms 07/01/22 08/13/22 History fluticasone propionate 50 1 spray intranasal BID 07/01/22 08/13/22 History mcg/actuation nasal spray,suspension pantoprazole 40 mg tablet,delayed 40 mg PO QAM 1 month #90 tabs 08/10/22 08/13/22 Rx release (Protonix) Patient hx anesthesia problems: none Family hx anesthesia problems: none Results Review: All pre-operative results and documents have been reviewed as part of the pre-operative evaluation. [facility] [place] Past Medical History Medical History Colon cancer screening Gout History of TIA (transient ischemic attack) Hypertension Morbid obesity Normal colonoscopy (~02/2020) repeat 10 years Obesity Obstructive sleep apnea Sleep apnea Surgical History Surgical History H/O knee surgery History of uvulopalatopharyngoplasty Social History Social History Smoking status: Never smoker Second hand tobacco smoke exposure: Yes Alcohol intake: current Alcohol use details: rarely Substance use: never Substance use type: does not use Living arrangements: with family Gender identity (if verbalized by the patient): Male Spiritual care concerns: No Anes - Eval Final PreProcedure Day of Procedure 08/25/22 08:10 Patient weight: morbidly obese Heart: regular rate and rhythm Lungs: clear to auscultation Airway: Mallampati scale class III Neurological: alert and oriented Last oral intake: >/= 8 hours ASA classification: III Emergent: no Anesthetic plan: proceed Anesthesia type and monitoring: general GIVS and standard monitoring Results Review: All pre-operative results and documents have been reviewed as part of the pre-operative evaluation. Informed Consent: The patient's anesthetic plan and its attendant risks and benefits were discussed with the patient/family/POA. Questions were solicited and answers provided to the satisfaction of the patient/family/POA.
--- NOTE | 2022-08-25 08:17 | PM.HPGS ---
History of Present Illness History of Present Illness Consent: Risks, benefits, and alternatives have been discussed and questions answered. Patient agrees to proceed with procedure. Chief complaint: esophageal stricture Narrative: Kilo Crowe is a 52 year old male with peptic stricture in esophagus better after dilation few months ago and also using ppi and not longer using nsaid's, recently noted mild dysphagia again. Review of Systems Constitutional: Constitutional: Denies headache(s) and Denies weakness Eyes: Eyes: Denies blurry vision ENT: Reports Normal hearing present, Denies headache(s) and Denies neck pain Cardiovascular: Cardiovascular: Denies chest pain and Denies dyspnea Respiratory: Respiratory: Denies dyspnea Gastrointestinal: Gastrointestinal: Reports no additional gastrointestinal complaints Genitourinary: Genitourinary: Denies dysuria Musculoskeletal: Musculoskeletal: Denies neck pain Integumentary/Breasts: Skin/Breast: Denies dry skin Neurologic: Reports Normal hearing present, Denies headache(s) and Denies weakness Psychiatric: Psychiatric: Denies anxiety Endocrine: Endocrine: Denies change in body appearance Hematologic/Lymphatic: Hematologic/Lymphatic: Denies easy bleeding Allergic/Immunologic: Allergic/Immunologic: Denies urticaria PMFSH Past Medical History Medical History (Updated 08/25/22 @ 08:18 by Andrae Brown MD) Colon cancer screening Esophageal stricture Gout History of TIA (transient ischemic attack) Hypertension Morbid obesity Normal colonoscopy (~02/2020) repeat 10 years Obesity Obstructive sleep apnea Sleep apnea Surgical History Surgical History H/O knee surgery History of uvulopalatopharyngoplasty Social History Social History Smoking status: Never smoker Second hand tobacco smoke exposure: Yes Alcohol intake: current Alcohol use details: rarely Substance use: never Substance use type: does not use Living arrangements: with family Gender identity (if verbalized by the patient): Male Spiritual care concerns: No Meds Home Medications and Allergies Home Medications Medication Instructions Recorded Confirmed Type allopurinol 300 mg tablet 300 mg PO DAILY #90 tabs 01/19/22 08/13/22 Rx amlodipine 5 mg tablet (Norvasc) 5 mg PO QAM #90 tabs 02/16/22 08/13/22 Rx aspirin 81 mg tablet,delayed See Rx Instructions .Route 03/17/22 08/13/22 Rx release .COMPLEX #30 tabs lisinopril 10 mg tablet 10 mg PO DAILY #90 tabs 04/30/22 08/13/22 Rx atorvastatin 20 mg tablet 20 mg PO DAILY #90 tabs 06/25/22 08/13/22 Rx azelastine 137 mcg (0.1 %) nasal 1 spray intranasal Q12H #30 mL 07/01/22 08/13/22 Rx spray aerosol cetirizine 10 mg capsule (Zyrtec) 10 mg PO .hs PRN allergy symptoms 07/01/22 08/13/22 History fluticasone propionate 50 1 spray intranasal BID 07/01/22 08/13/22 History mcg/actuation nasal spray,suspension pantoprazole 40 mg tablet,delayed 40 mg PO QAM 1 month #90 tabs 08/10/22 08/13/22 Rx release (Protonix) Allergies Allergy/AdvReac Type Severity Reaction Status Date / Time No Known Allergies Allergy Mild Verified 08/25/22 07:18 Vital Signs Vital Signs - 24 hr 08/25/22 07:19 Temperature 97.7 F Pulse Rate 78 Respiratory Rate 20 Blood Pressure 157/97 H Pulse Oximetry 98 Oxygen Delivery Room Air Exam Const: General: comfortable and no acute distress HENMT: Face/Nose/Sinus: Normal nares present Eyes: General: appearance normal, both eyes and all related structures Neck: Neck: no JVD Resp: Auscultation: clear to auscultation bilaterally Cardio: Rate: regular rate Rhythm: regular rhythm GI: Inspection: non-distended GI Palp: Yes Soft to palpation Skin: General skin exam: normal color Neuro: General: gait normal Speech: normal speech Extrem: General: normal to
[2022-08-25 08:34] VITALS: BP 156/90; PULSE 82; RESP 25; O2SAT 98
[2022-08-25 08:44] VITALS: BP 166/88; PULSE 73; RESP 24; O2SAT 98
[2022-08-25 08:54] VITALS: BP 173/98; PULSE 78; RESP 22; O2SAT 98
== END 2022-08-25 09:04 | disposition home or self-care (01) ==
PROVIDERS: PCP Family Medicine; Visit Provider Internal Medicine Gastroenterology
PROC: 0DJ08ZZ Inspection of Upper Intestinal Tract, Via Natural or Artificial Opening Endoscopic (ICD-10-PCS; CPT 43235; principal; 2022-08-25 08:30)
DX: K21.00 Gastro-esophageal reflux disease with esophagitis, without bleeding (principal); K22.2 Esophageal obstruction; K44.9 Diaphragmatic hernia without obstruction or gangrene; K29.70 Gastritis, unspecified, without bleeding; Z79.82 Long term (current) use of aspirin; I10 Essential (primary) hypertension; G47.33 Obstructive sleep apnea (adult) (pediatric); M10.9 Gout, unspecified; Z86.73 Personal history of transient ischemic attack (TIA), and cerebral infarction without residual deficits; E66.01 Morbid (severe) obesity due to excess calories; Z68.42 Body mass index [BMI] 45.0-49.9, adult
CPT/HCPCS: 43249; C1726; J2704; J7120